=== PATIENT | female | born 1980 | race Two or more races ===

== ENCOUNTER 2021-05-09 19:09 | Emergency (ER) | payer OTHER, SELFPAY ==
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
[2021-05-09 20:30] VITALS: BP 127/78; BP 142/80; PULSE 63; PULSE 90; RESP 16; TEMP 36.2; O2SAT 98; O2SAT 99; BMI 28.6
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
== END 2021-05-09 22:03 | disposition home or self-care (01) ==
PROVIDERS: Emergency Provider Internal Medicine
DX: S16.1XXA Strain of muscle, fascia and tendon at neck level, initial encounter (principal); M54.2 Cervicalgia; G44.309 Post-traumatic headache, unspecified, not intractable; V43.52XA Car driver injured in collision with other type car in traffic accident, initial encounter; Y93.9 Activity, unspecified; Y92.410 Unspecified street and highway as the place of occurrence of the external cause; Y99.9 Unspecified external cause status; Z79.899 Other long term (current) drug therapy
CPT/HCPCS: 70450; 72125; 99283; 99284

== ENCOUNTER → 2024-08-01 09:20 | Outpatient (BNVA) | payer OTHER, SELFPAY | PROVIDERS: Visit Provider Physician Assistant | DX: R21 Rash and other nonspecific skin eruption (principal); R10.9 Unspecified abdominal pain | CPT/HCPCS: 99202 ==

== ENCOUNTER 2024-08-01 09:37 | Outpatient (AMB) | payer OTHER, SELFPAY ==
--- NOTE | 2024-08-01 09:25 | AM.OFFWIN_ITS ---
Intake Vital Signs 08/01/24 09:53 Weight 191 lb BP 110/80 Blood Pressure Location Rt brachial Position Sitting Pulse 91 Pulse Source Pulse Oximeter Pulse Oximetry (%) 98 Oxygen Delivery Method Room Air Intake Visit Reasons: EP pain all over head, sore throat [phone] Intake Note: Patient here for pain, gums, left ear pain, eyes, back of neck, tongue, rash on face which has been going on for 5-6 days now. Patient Tobacco Use Status: Never used Tobacco Allergies acetaminophen [ACETAMINOPHEN] Allergy (Unknown, Unverified 02/15/20 17:07) UNKNOWN caffeine [CAFFEINE] Allergy (Unknown, Unverified 02/15/20 17:07) UNKNOWN carisoprodol [Soma] Allergy (Unknown, Verified 05/17/19 00:00) hydrocodone [Vicodin] Allergy (Unknown, Verified 05/17/19 00:00) oxycodone [Percocet] Allergy (Unknown, Verified 05/17/19 00:00) tramadol Allergy (Unknown, Verified 05/17/19 00:00) HPI HPI Comments History of Present Illness Details This is a 44-year-old female with a past surgical history of parathyroid removal any past medical history of immune compromise with no current healthcare providers presenting for evaluation of a facial rash that is present for the past 2 weeks that she describes as itchy, red and hot. Patient has been treating this rash with castor oil without relief. Patient is also complaining of intermittent left-sided jaw pain that radiates to the entirety of her face. Patient states that she has a pressure-like sensation that extends from her left jaw to her left ear with dental pain. Additionally, patient reports a pressure-like sensation in the front of her throat that is constant. She is unable to state the chronicity of this symptom. Patient states she is able to eat drink without difficulty however whenever she eats or drinks must be room temperature or else it will exacerbate her pain. Finally, the patient is complaining of abdominal pain. She is not able to describe the character of this abdominal pain or when it started. [facility] Social History Patient Tobacco Use Status: Never used Tobacco Review of Systems Const Reports chills and Denies fever(s) Eyes Reports no additional complaints ENT Details: left sided jaw pain that radiates to left ear with dental pain Reports facial pain GI Details: abdominal pain , denies nausea, vomiting Physical Exam Vital Signs: Last Vital Signs Pulse 91 08/01/24 09:53 BP 110/80 08/01/24 09:53 Pulse Ox 98 08/01/24 09:53 Oxygen Delivery Method Room Air 08/01/24 09:53 Physical examination is not obtained. Patient is refusing to remove her mask for evaluation of her facial rash, jaw pain, dental pain and ear pain. This is the 2nd provider who has attempted to obtain an HPI and perform a physical examination. Patient is requesting to be treated based on pictures that she has on her phone. Patient states that she is immunocompromised however does not have a treating physician of record or known specific diagnosis. Assessment & Plan Assessment & Plan (1) Facial rash: Code(s): R21 - Rash and other nonspecific skin eruption Plan: Visit is terminated given this patient's resistance to several aspects of this visit; patient has requested to record the interaction, she is unwilling to participate in a reasonable examination and has demanded that each provider wear 2 masks including an N-95 which this provider was wearing. Given that it is not possible to provide a level of care which is consistent with my expertise and the reputation of [facility], the patient is asked to seek care at an alternative site as I am uncomfortable providing a disposition and care based on HPI only and no physical examination. milieu manager aware and Risk Management was notified by the first provider who attempted to evaluate this patient. (2) Abdominal pain: Code(s): R10.9 - Unspecified abdominal pain Qualifiers: Abdominal location: unspecified location Qualified Code(s): R10.9 - Unspecified abdominal pain Plan: See above. Coding Level of Care Code New Pt Level 3 (09747) Diagnoses Facial rash R21 Abdominal pain, unspecified abdominal location R10.9 Abdominal location: unspecified location Time Spent (min) 30
[2024-08-01 09:53] VITALS: BP 110/80; PULSE 91; O2SAT 98
--- OUTSIDE RECORDS SUMMARY | 2024-08-01 10:18 | XMS_ITS | Clinical Summary ---
Author Organization [facility] [employer] [facility] ity Address [address] [place] [address] Care Team Providers Care Maxillofacial Prosthetics Dentist Name Role Phone Unavailable Primary Care Provider Unavailabl e Social History Tobacco Use Types Packs/Day Years Used Date Smoking Tobacco: Never Assessed Comments Unknown Sex and Gender Information Value Date Recorded Sex Assigned at Not on file Legal Sex Female 4:54 AM EST Gender Identity Not on file Sexual Orientation Not on file Plan of Treatment Health Maintenance Due Date Last Done Comments Breast Cancer Screening 1978 DTaP,Tdap,and Td Vaccines (1 - Tdap) 1997 Hepatitis B Vaccines (1 of 3 - 19+ 3-dose series) 1997 Cervical Cancer Screening: P ap Smear 1999 COVID-19 Vaccine (2023-2 5 season) 2024 Influenza Vaccine (#1) 2024 HIB Vaccines Aged Out No longer eligi ble based on patient's age to complete this topic HPV Vaccines Aged Out No longer eligi ble based on patient's age to complete this topic Hepatitis A Vaccines Aged Out No long er eligible based on patient's age to complete this topic IPV Vaccines Aged Out No longer eligi ble based on patient's age to complete this topic MMR Vaccines Aged Out No longer eligi ble based on patient's age to complete this topic Meningococcal ACWY Vaccine Aged Out N o longer eligible based on patient's age to complete this topic Meningococcal B Vacine Aged Out No lo nger eligible based on patient's age to complete this topic Pneumococcal Vaccine: Pediat rics (0 to 5 Years) and At-Risk Patients (6 to 64 Years) Aged Out No longer eligible b ased on patient's age to complete this topic RSV Immunization Patients Un julianne 20 months Aged Out No longer eligible b ased on patient's age to complete this topic Varicella Vaccines Aged Out No longer eligible based on patient's age to complete this topic
--- OUTSIDE RECORDS SUMMARY | 2024-08-01 10:51 | XMS_ITS | Clinical Summary ---
Author Organization [facility] [email or web address] [facility] ity Address [address] [place] [address] Care Team Providers Care Sales Clerk Supervisor Name Role Phone Unavailable Primary Care Provider [...]
== END 2024-08-01 11:09 | disposition home or self-care (01) ==
PROVIDERS: Visit Provider Physician Assistant
DX: R21 Rash and other nonspecific skin eruption (principal); R10.9 Unspecified abdominal pain